=== PATIENT | male | born 1975 | race Caucasian/White ===

== ENCOUNTER 2021-07-25 17:55 | Emergency (ER) | payer SELFPAY ==
[2021-07-25] MEDS ORDERED: Ketorolac Tromethamine 60 MG/2 ML VIAL ONE (19:18)
[2021-07-25] MEDS ORDERED: Orphenadrine Citrate 60 MG/2 ML VIAL ONE ×2 (19:18)
[2021-07-25] MEDS ORDERED: Ketorolac Tromethamine 30 MG/ML VIAL ONE (19:19)
== END 2021-07-25 21:00 | disposition home or self-care (01) ==
LOC: MADERS 17:55
DX: M79.10 Myalgia, unspecified site (principal); M54.5 Low back pain; M54.6 Pain in thoracic spine; F17.220 Nicotine dependence, chewing tobacco, uncomplicated; X50.0XXA Overexertion from strenuous movement or load, initial encounter
CPT/HCPCS: 72072; 72100; 96372; J1885; J2360

== ENCOUNTER 2021-07-26 07:08 | Emergency (ER) | payer SELFPAY ==
[2021-07-26] MEDS ORDERED: Ketorolac Tromethamine 60 MG/2 ML VIAL ONE (07:41)
== END 2021-07-26 08:00 | disposition home or self-care (01) ==
LOC: MADERS 07:08
DX: M54.5 Low back pain (principal); F17.220 Nicotine dependence, chewing tobacco, uncomplicated
CPT/HCPCS: 96372; 99283; J1885

== ENCOUNTER 2023-05-30 14:01 | Emergency (ER) | payer SELFPAY | END 2023-05-30 15:40 | disposition home or self-care (01) | LOC: MADERS 14:01 | DX: S29.012A Strain of muscle and tendon of back wall of thorax, initial encounter (principal); F17.220 Nicotine dependence, chewing tobacco, uncomplicated; X58.XXXA Exposure to other specified factors, initial encounter | CPT/HCPCS: 99283 ==